=== PATIENT | female | born 1980 | race Caucasian/White ===

== ENCOUNTER 2020-04-02 00:13 | Day surgery (SDC) | payer BC, SELFPAY ==
[2020-03-23 14:58] VITALS: BMI 28.8
--- NOTE | 2020-03-30 21:17 | P.HP_ITS ---
H&P: HPI History of Present Illness Date/Time: 03/30/20 21:17 Che Complaint: sk[place] gland cyst Narrative: Adelina Emmanuel is a 40 year old female with a [place] gland cyst Review of Systems Review of Systems: All systems reviewed & are unremarkable except as noted in HPI and below PMFSH Social History Social History Smoking packs per day: 0.25 Smoking cigarettes per day: 5.0 Years smoked: 1 Smoking pack-years: 0.25 Smoking status: Former smoker Tobacco type: cigarettes Last use: daily Living arrangements: with family Gender identity (if verbalized by the patient): Female Sexual Orientation (if Verbalized by the Patient): Straight or Heterosexual Spiritual care concerns: No Meds Home Medications and Allergies Home Medications Medication Instructions Recorded Confirmed Type bupropion HCl [Wellbutrin] 100 mg PO DAILY 03/23/20 03/23/20 History sertraline [Zoloft] 100 mg PO DAILY 03/23/20 03/23/20 History Allergies Allergy/AdvReac Type Severity Reaction Status Date / Time No Known Allergies Allergy Verified 03/23/20 17:21 Exam Const: General: cooperative and healthy appearing HENMT: Head: normal to inspection Eyes: General: appearance normal, both eyes and all related structures Resp: Effort & Inspection: normal respiratory effort and able to speak in complete sentences : External Female Exam: urethral discharge and lesion Neuro: General: patient oriented x3 Assessment and Plan Assessment and plan (1) [place]'s gland cyst: Code(s): N36.8 - Other specified disorders of urethra Status: Acute Assessment and Plan: excision of the above
--- NOTE | 2020-04-01 09:47 | P.PNAN_ITS ---
Anes - Initial Pre Proc Eval Procedure: Operation Date: 04/02/20 08:30 Proposed Procedures p Excision [place]'s Gland Cyst - Ezekiel Gonzalez MD Date/Time: 04/01/20 09:47 Surgeon: Ezekiel Gonzalez MD Pre Op Diagnosis: [place]'s Gland Cyst Patient Data Age: 40 Gender: F Height: 1.73 m Weight: 86 kg Allergies Allergy/AdvReac Type Severity Reaction Status Date / Time No Known Allergies Allergy Verified 03/23/20 17:21 Home Medications Medication Instructions Recorded Confirmed Type bupropion HCl [Wellbutrin] 100 mg PO DAILY 03/23/20 03/23/20 History sertraline [Zoloft] 100 mg PO DAILY 03/23/20 03/23/20 History Patient hx anesthesia problems: none Family hx anesthesia problems: none [facility] Past Medical History Medical History (Updated 04/01/20 @ 09:48 by Herbie Khoury DO) Anxiety Depression Social History Social History Smoking packs per day: 0.25 Smoking cigarettes per day: 5.0 Years smoked: 1 Smoking pack-years: 0.25 Smoking status: Former smoker Tobacco type: cigarettes Last use: daily Living arrangements: with family Gender identity (if verbalized by the patient): Female Sexual Orientation (if Verbalized by the Patient): Straight or Heterosexual Spiritual care concerns: No Anes - Eval Final PreProcedure Day of Procedure 04/01/20 09:47 Patient weight: overweight Heart: regular rate and rhythm Lungs: clear to auscultation and normal air movement Airway: Mallampati scale class II Neurological: alert and oriented Last oral intake: >/= 8 hours ASA classification: II Anesthetic plan: proceed Anesthesia type and monitoring: general LMA and standard monitoring Informed Consent: The patient's anesthetic plan and its attendant risks and benefits were discussed with the patient/family/POA. Questions were solicited and answers provided to the satisfaction of the patient/family/POA.
[2020-04-02 06:32] VITALS: BP 136/88; PULSE 85; RESP 16; TEMP 36.4; O2SAT 100
[2020-04-02] MEDS: LACTATED RINGERS 1,000 ML 30 ML IV CONT (07:20)
--- NOTE | 2020-04-02 07:29 | WPDHPUPDATE1 ---
History and Physical Update Update Date/Time: 04/02/20 07:29 History and Physical has been reviewed, including an updated exam of the patient. There are NO changes in the patient's condition. Risks, benefits, and alternatives have been discussed and questions answered. Patient agrees to proceed with procedure.
[2020-04-02] MEDS: ceFAZolin 2 GM/D5W 50 ML 2 GM/50 ML BAG IVPB (08:14)
[2020-04-02 09:00] VITALS: BP 103/56; PULSE 79; RESP 16; TEMP 36.4; O2SAT 100
--- NOTE | 2020-04-02 09:13 | P.OP_ITS ---
Procedure Note - Detailed Date of procedure: 04/02/20 Pre-op diagnosis: [place]'s Gland Cyst Post-op diagnosis: same Procedure performed: Excision of [place]'s gland cyst, cystoscopy Description of procedure: She was correctly identified. Informed consent obtained. Spinal the operating room. She was given general anesthesia. She was prepped and draped in the dorsal thigh position. Pressure points were padded. She was given appropriate perioperative antibiotics. A time-out performed. Placed Keys catheter. I placed a Viola retractor. I incised the mucosa over top of the [place]'s gland cyst. It was about 1/2 to 2 cm in size. I dissected the [place]'s gland cyst off the underlying tissues. I removed in its entirety. It was sent for pathologic analysis. I irrigated out the wounds. There is no sign of any injury to the urethra. I closed the space with a 4 Vicryl suture and closed the mucosa for a Vicryl suture there was excellent hemostasis. On cystoscopy the bladder was normal ureteral orifices were normal. There is no damage to the urethra. I left the Keys catheter out. She was awakened and transferred to PACU in stable condition. Anesthesia: GLMA Surgeon: Ezekiel Gonzalez MD Estimated blood loss (mL): 30 Drains: No Packing: No Pathology: yes (A [place]'s gland cyst) Complications: No immediate complications Condition: stable Disposition: PACU
[2020-04-02 09:15] VITALS: BP 119/69; PULSE 77; RESP 16; O2SAT 100
[2020-04-02 09:29] VITALS: BP 93/65; PULSE 58; RESP 17; O2SAT 99
[2020-04-02 09:40] VITALS: BP 128/58; PULSE 61; RESP 18
[2020-04-02 10:00] VITALS: BP 109/75; PULSE 59; RESP 18
== END 2020-04-02 10:10 | disposition home or self-care (01) ==
PROVIDERS: Visit Provider Urology
PROC: (CPT 57240; principal; 2020-04-02 08:30)
DX: N36.8 Other specified disorders of urethra (principal); Z87.891 Personal history of nicotine dependence; F41.9 Anxiety disorder, unspecified; F32.9 Major depressive disorder, single episode, unspecified
CPT/HCPCS: 53270; 88305; A9270; J0690; J1100; J2250; J2405; J2704; J3010; J7030; J7120